=== PATIENT | female | born 1995 | race African-American/Black ===

== ENCOUNTER 2021-09-04 14:50 | Observation (INO) ==
--- NOTE | 2021-09-04 15:46 | Emergency Department Note ---
History of Present Illness General Chief complaint: Referred by Doctor Stated complaint: HEMOGLOBIN IS 4, TOLD TO COME BACK Time Seen by Provider: 09/04/21 15:27 History of Present Illness 26-year-old female who presents to the emergency department with a male friend for evaluation of anemia. The patient reports a prior history of iron deficiency anemia. She follows with Dr. Arnold, a rn review in [place]. She had lab work performed on Tuesday, and was called early Tuesday morning and advised that her hemoglobin was 4.3. The patient is visiting her friend from [place]. The patient reports feeling weak, dizzy, having chest pain and shortness of breath. She denies any back pain, nausea or headache. The patient has needed a blood transfusion approximately 2.5 years ago. She reports that s he has heavy menstruations do not help. She is due for her menstruation next week. Patient currently denies . The patient currently denies any discomfort. Home Medications Medication Instructions Recorded Confirmed Type No Known Home Medications 09/04/21 09/04/21 History Allergies Allergy/AdvReac Type Severity Reaction Status Date / Time acetaminophen Allergy Severe hallucinati Verified 09/04/21 17:49 ons Past Med/Surg History Medical History (Updated 09/04/21 @ 19:15 by Meagan Medina PA-C) Asthma History of blood transfusion Iron deficiency anemia Surgical History (Updated 09/04/21 @ 19:15 by Meagan Medina PA-C) History of appendectomy Family History (Updated 09/04/21 @ 19:13 by Meagan Medina PA-C) Mother Anemia LUCI in relation to fibroid uterus Denies family history of Blood disorder Social History (Updated 09/04/21 @ 19:14 by Meagan Medina PA-C) Smoking Status: Never smoker Hx Alcohol Use: Yes Alcohol type: wine Alcohol Intake Frequency: Monthly or Less Hx Substance Use: No Preferred Language: Slovak marital status: Single current occupational status: employed Feels Safe at Home: Yes Review of Systems 10 system review was performed and was negative except for pertinent positives and negatives as indicated in history of present illness Physical Exam Vital Signs Vital Signs - 24 hr 09/04/21 14:53 09/04/21 15:55 09/04/21 17:00 Temperature 36.6 C Temperature Source Temporal Artery Scan Pulse Rate 74 Pulse Rate [Apical] 77 70 Pulse Rhythm [Apical] Regular Respiratory Rate 16 16 16 Respiratory Effort / Characteristics Non-Labored Non-Labored Respiratory Depth Normal Normal Blood Pressure 121/77 Blood Pressure [Left Arm] 100/62 Blood Pressure Mean 91 Blood Pressure Mean [Left Arm] 74 Pulse Oximetry 100 99 98 Oxygen Delivery Method Room Air Room Air Room Air Sepsis Recent Fever Within 48 Hours No Sepsis New/Unexplained Change in Mental Status No Sepsis Action Taken by Nursing No Action Required 09/04/21 18:33 09/04/21 19:00 Temperature Temperature Source Pulse Rate 76 Pulse Rate [Apical] 78 Pulse Rhythm [Apical] Regular Respiratory Rate 16 18 Respiratory Effort / Characteristics Non-Labored Respiratory Depth Normal Blood Pressure 118/58 L Blood Pressure [Left Arm] 114/66 Blood Pressure Mean 78 Blood Pressure Mean [Left Arm] 82 Pulse Oximetry 99 98 Oxygen Delivery Method Room Air Room Air Sepsis Recent Fever Within 48 Hours Sepsis New/Unexplained Change in Mental Status Sepsis Action Taken by Nursing CONSTITUTIONAL: Healthy and well nourished. Alert and oriented X 3. Does not appear in any acute distress. HEENT: Normocephalic, atraumatic. Pupils equal, round and reactive. Patient has conjunctival pallor. Mucous membranes are dry. NECK: Full active range of motion without discomfort. No JVD or carotid bruits. LYMPHATICS: No cervical chain adenopathy. RESPIRATORY: Clear to auscultation bilaterally with no wheezing, crackles, rhonchi or stridor. CARDIOVASCULAR: Regular rate and rhythm with no murmurs, rubs or gallops. GASTROINTESTINAL: Bowel sounds present in all quadrants. Abdomen is soft and nontender to palpation. MUSCULOSKELETAL: Full range of motion of all major joints without discomfort. INTEGUMENTARY: No rash or other significant dermatologic conditions noted. HEMATOLOGIC: No ecchymosis or petechiae. PSYCHIATRIC: Positive affect. NEUROLOGIC: Cranial nerves II-XII grossly intact. No focal neurologic deficits noted. Course Course Patient history and physical exam were performed. Nurses notes were reviewed. Vital signs were reviewed and were normal from triage. She has not had any visits to our facility in the past. IV access was established, and labs were drawn. The patient was hydrated with a liter normal saline. An ECG was performed shows a normal sinus rhythm. The patient was placed on cardiac exercise specialist while in the emergency department. Review of labs shows a hemoglobin and hematocrit of 4.9 and 18.2, respectively. The patient is also pancytopenic with a white count of 3.77, and platelet count of 108,000. Patient is mildly hyponatremic, which should be corrected with the IV normal saline. Creatinine is normal. Additional labs for anemia assessment were also ordered. TSH is normal. Urinalysis shows no hematuria or signs of infection. Findings were discussed with the patient. The patient was advised that she should receive blood transfusions, and I did recommend hospitalist management. The patient was in agreement with admission. I did order a COVID-19 test, however the patient initially refused. When I went back to talk with the patient. She reported "I do not want any chemicals put in my body". I explained that this is only a dry nasal swab. The patient did sign an informed consent for blood transfusions. I also recommended a stool Hemoccult test, either with a stool sample or digital rectal exam. The patient reports that she would try to provide a stool sample, and refused a digital rectal exam. The case was further discussed with the [facility] service, who came to the emergency department for further reevaluation and management. Please see their dictation for further treatment and final disposition. Medical Decision Making Medical Records Attestation: I reviewed the patient's medical records. Home Medications Current Medication List: was personally reviewed by me Laboratory Data Attestation: I reviewed the patient's lab results. Result diagrams: 09/04/21 15:57 09/04/21 15:57 Lab Results 09/04/21 09/04/21 09/04/21 Range/Units 15:57 15:57 15:57 WBC 3.77 L (4.8-10.8) K/uL RBC 2.47 L (4.2-5.4) M/uL Hgb 4.9 L* (12.0-16.0) g/dL Hct 18.2 L* (37-47) % MCV 73.7 L (80-100) fL MCH 19.8 L (25-34) pg MCHC 26.9 L (32-36) g/dL RDW Std Deviation 64.4 H (36.4-46.3) fL RDW Coeff of Hyacinth 24.3 H (11.5-14.5) % Plt Count 108 L (130-400) K/uL MPV 10.3 (7.4-10.4) fL Immature Gran % (Auto) 0.0 % Neut % (Auto) 63.9 % Lymph % (Auto) 23.1 % [place] % (Auto) 9.5 % Eos % (Auto) 3.2 % Baso % (Auto) 0.3 % Neut # (Auto) 2.41 (1.4-6.5) K/uL Lymph # (Auto) 0.87 L (1.2-3.4) K/uL [place] # (Auto) 0.36 (0.11-0.59) K/uL Eos # (Auto) 0.12 (0-0.5) K/uL Baso # (Auto) 0.01 (0-0.2) K/uL Immature Gran # (Auto) 0.00 (0.00-0.02) K/uL Platelet Estimate Decreased L (Normal) Giant Platelets 1+ Hypochromasia Present Anisocytosis Present Target Cells 1+ Tear Drop Cells 1+ PT 12.0 (9.0-12.0) Seconds INR 1.1 (0.9-1.1) Sodium (136-145) mmol/L Potassium (3.5-5.1) mmol/L Chloride (98-107) mmol/L Carbon Dioxide (21-32) mmol/L Anion Gap (3-11) BUN (6-23) mg/dl Creatinine (0.6-1.2) mg/dl Est Cr Clr Drug Dosing ml/min Est GFR ( Amer) ml/min Est GFR (Non-Af Amer) ml/min BUN/Creatinine Ratio (10-20) Glucose (70-99(Fasting)) mg/dl Calcium (8.5-10.1) mg/dl Phosphorus (2.5-4.9) mg/dl Magnesium (1.7-2.4) mg/dl Iron (35-150) mcg/dl Transferrin (200-360) mg/dl Ferritin (8-388) ng/ml Total Bilirubin (0.2-1.0) mg/dl Direct Bilirubin AST (13-39) U/L ALT (7-52) U/L Alkaline Phosphatase (34-104) U/L Troponin I High Sens (0-14) pg/ml Total Protein (6.0-8.3) gm/dl Albumin (3.4-5.0) gm/dl Globulin (2.5-4.0) gm/dl Albumin/Globulin Ratio (0.9-2) Vitamin B12 353 (180-914) pg/ml Folate 9.99 (>5.38) ng/ml TSH (0.300-4.500) uIu/ml Urine Color Urine Appearance (Clear) Urine pH (4.5-7.5) Ur Specific [place] (1.000-1.030) Urine Protein (Negative) Urine Glucose (UA) (Negative) Urine Ketones (Negative) Urine Blood (Negative) Urine Nitrite (Negative) Urine Bilirubin (Negative) Urine Urobilinogen (Negative) Ur Leukocyte Esterase (Negative) POC Ur Test (NEG) SARS-CoV-2, RNA, NAAT (NEGATIVE) Blood Type Blood Type Recheck Antibody Screen Crossmatch 09/04/21 09/04/21 09/04/21 Range/Units 15:57 15:57 15:57 WBC (4.8-10.8) K/uL RBC (4.2-5.4) M/uL Hgb (12.0-16.0) g/dL Hct (37-47) % MCV (80-100) fL MCH (25-34) pg MCHC (32-36) g/dL RDW Std Deviation (36.4-46.3) fL RDW Coeff of Hyacinth (11.5-14.5) % Plt Count (130-400) K/uL MPV (7.4-10.4) fL Immature Gran % (Auto) % Neut % (Auto) % Lymph % (Auto) % [place] % (Auto) % Eos % (Auto) % Baso % (Auto) % Neut # (Auto) (1.4-6.5) K/uL Lymph # (Auto) (1.2-3.4) K/uL [place] # (Auto) (0.11-0.59) K/uL Eos # (Auto) (0-0.5) K/uL Baso # (Auto) (0-0.2) K/uL Immature Gran # (Auto) (0.00-0.02) K/uL Platelet Estimate (Normal) Giant Platelets Hypochromasia Anisocytosis Target Cells Tear Drop Cells PT (9.0-12.0) Seconds INR (0.9-1.1) Sodium 135 L (136-145) mmol/L Potassium 3.5 (3.5-5.1) mmol/L Chloride 105 (98-107) mmol/L Carbon Dioxide 22 (21-32) mmol/L Anion Gap 8 (3-11) BUN 7 (6-23) mg/dl Creatinine 0.57 L (0.6-1.2) mg/dl Est Cr Clr Drug Dosing 164.3 ml/min Est GFR ( Amer) 147.2 ml/min Est GFR (Non-Af Amer) 127.0 ml/min BUN/Creatinine Ratio 12.3 (10-20) Glucose 82 (70-99(Fasting)) mg/dl Calcium 9.4 (8.5-10.1) mg/dl Phosphorus 3.8 (2.5-4.9) mg/dl Magnesium 2.1 (1.7-2.4) mg/dl Iron 19 L (35-150) mcg/dl Transferrin 395 H (200-360) mg/dl Ferritin 1.8 L (8-388) ng/ml Total Bilirubin 2.4 H (0.2-1.0) mg/dl Direct Bilirubin AST 10 L (13-39) U/L ALT 5 L (7-52) U/L Alkaline Phosphatase 53 (34-104) U/L Troponin I High Sens 2.6 (0-14) pg/ml Total Protein 7.4 (6.0-8.3) gm/dl Albumin 4.5 (3.4-5.0) gm/dl Globulin 2.9 (2.5-4.0) gm/dl Albumin/Globulin Ratio 1.6 (0.9-2) Vitamin B12 Cancelled (180-914) pg/ml Folate (>5.38) ng/ml TSH 1.088 (0.300-4.500) uIu/ml Urine Color Urine Appearance (Clear) Urine pH (4.5-7.5) Ur Specific [place] (1.000-1.030) Urine Protein (Negative) Urine Glucose (UA) (Negative) Urine Ketones (Negative) Urine Blood (Negative) Urine Nitrite (Negative) Urine Bilirubin (Negative) Urine Urobilinogen (Negative) Ur Leukocyte Esterase (Negative) POC Ur Test (NEG) SARS-CoV-2, RNA, NAAT (NEGATIVE) Blood Type Blood Type Recheck Antibody Screen Crossmatch 09/04/21 09/04/21 09/04/21 Range/Units 16:45 16:45 17:08 WBC (4.8-10.8) K/uL RBC (4.2-5.4) M/uL Hgb (12.0-16.0) g/dL Hct (37-47) % MCV (80-100) fL MCH (25-34) pg MCHC (32-36) g/dL RDW Std Deviation (36.4-46.3) fL RDW Coeff of Hyacinth (11.5-14.5) % Plt Count (130-400) K/uL MPV (7.4-10.4) fL Immature Gran % (Auto) % Neut % (Auto) % Lymph % (Auto) % [place] % (Auto) % Eos % (Auto) % Baso % (Auto) % Neut # (Auto) (1.4-6.5) K/uL Lymph # (Auto) (1.2-3.4) K/uL [place] # (Auto) (0.11-0.59) K/uL Eos # (Auto) (0-0.5) K/uL Baso # (Auto) (0-0.2) K/uL Immature Gran # (Auto) (0.00-0.02) K/uL Platelet Estimate (Normal) Giant Platelets Hypochromasia Anisocytosis Target Cells Tear Drop Cells PT (9.0-12.0) Seconds INR (0.9-1.1) Sodium (136-145) mmol/L Potassium (3.5-5.1) mmol/L Chloride (98-107) mmol/L Carbon Dioxide (21-32) mmol/L Anion Gap (3-11) BUN (6-23) mg/dl Creatinine (0.6-1.2) mg/dl Est Cr Clr Drug Dosing ml/min Est GFR ( Amer) ml/min Est GFR (Non-Af Amer) ml/min BUN/Creatinine Ratio (10-20) Glucose (70-99(Fasting)) mg/dl Calcium (8.5-10.1) mg/dl Phosphorus (2.5-4.9) mg/dl Magnesium (1.7-2.4) mg/dl Iron (35-150) mcg/dl Transferrin (200-360) mg/dl Ferritin (8-388) ng/ml Total Bilirubin (0.2-1.0) mg/dl Direct Bilirubin AST (13-39) U/L ALT (7-52) U/L Alkaline Phosphatase (34-104) U/L Troponin I High Sens (0-14) pg/ml Total Protein (6.0-8.3) gm/dl Albumin (3.4-5.0) gm/dl Globulin (2.5-4.0) gm/dl Albumin/Globulin Ratio (0.9-2) Vitamin B12 (180-914) pg/ml Folate (>5.38) ng/ml TSH (0.300-4.500) uIu/ml Urine Color Yellow Urine Appearance Clear (Clear) Urine pH 6.0 (4.5-7.5) Ur Specific [place] 1.005 (1.000-1.030) Urine Protein Negative (Negative) Urine Glucose (UA) Negative (Negative) Urine Ketones Trace H (Negative) Urine Blood Negative (Negative) Urine Nitrite Negative (Negative) Urine Bilirubin Negative (Negative) Urine Urobilinogen Negative (Negative) Ur Leukocyte Esterase Negative (Negative) POC Ur Test NEG (NEG) SARS-CoV-2, RNA, NAAT (NEGATIVE) Blood Type O Positive Blood Type Recheck Antibody Screen NEGATIVE Crossmatch See Detail 09/04/21 09/04/21 09/04/21 Range/Units 17:33 19:16 19:16 WBC (4.8-10.8) K/uL RBC (4.2-5.4) M/uL Hgb (12.0-16.0) g/dL Hct (37-47) % MCV (80-100) fL MCH (25-34) pg MCHC (32-36) g/dL RDW Std Deviation (36.4-46.3) fL RDW Coeff of Hyacinth (11.5-14.5) % Plt Count (130-400) K/uL MPV (7.4-10.4) fL Immature Gran % (Auto) % Neut % (Auto) % Lymph % (Auto) % [place] % (Auto) % Eos % (Auto) % Baso % (Auto) % Neut # (Auto) (1.4-6.5) K/uL Lymph # (Auto) (1.2-3.4) K/uL [place] # (Auto) (0.11-0.59) K/uL Eos # (Auto) (0-0.5) K/uL Baso # (Auto) (0-0.2) K/uL Immature Gran # (Auto) (0.00-0.02) K/uL Platelet Estimate (Normal) Giant Platelets Hypochromasia Anisocytosis Target Cells Tear Drop Cells PT (9.0-12.0) Seconds INR (0.9-1.1) Sodium (136-145) mmol/L Potassium (3.5-5.1) mmol/L Chloride (98-107) mmol/L Carbon Dioxide (21-32) mmol/L Anion Gap (3-11) BUN (6-23) mg/dl Creatinine (0.6-1.2) mg/dl Est Cr Clr Drug Dosing ml/min Est GFR ( Amer) ml/min Est GFR (Non-Af Amer) ml/min BUN/Creatinine Ratio (10-20) Glucose (70-99(Fasting)) mg/dl Calcium (8.5-10.1) mg/dl Phosphorus (2.5-4.9) mg/dl Magnesium (1.7-2.4) mg/dl Iron (35-150) mcg/dl Transferrin (200-360) mg/dl Ferritin (8-388) ng/ml Total Bilirubin (0.2-1.0) mg/dl Direct Bilirubin Cancelled AST (13-39) U/L ALT (7-52) U/L Alkaline Phosphatase (34-104) U/L Troponin I High Sens (0-14) pg/ml Total Protein (6.0-8.3) gm/dl Albumin (3.4-5.0) gm/dl Globulin (2.5-4.0) gm/dl Albumin/Globulin Ratio (0.9-2) Vitamin B12 (180-914) pg/ml Folate (>5.38) ng/ml TSH (0.300-4.500) uIu/ml Urine Color Urine Appearance (Clear) Urine pH (4.5-7.5) Ur Specific [place] (1.000-1.030) Urine Protein (Negative) Urine Glucose (UA) (Negative) Urine Ketones (Negative) Urine Blood (Negative) Urine Nitrite (Negative) Urine Bilirubin (Negative) Urine Urobilinogen (Negative) Ur Leukocyte Esterase (Negative) POC Ur Test (NEG) SARS-CoV-2, RNA, NAAT NEGATIVE (NEGATIVE) Blood Type Blood Type Recheck O Positive Antibody Screen Crossmatch 09/04/21 Range/Units 19:16 WBC (4.8-10.8) K/uL RBC (4.2-5.4) M/uL Hgb (12.0-16.0) g/dL Hct (37-47) % MCV (80-100) fL MCH (25-34) pg MCHC (32-36) g/dL RDW Std Deviation (36.4-46.3) fL RDW Coeff of Hyacinth (11.5-14.5) % Plt Count (130-400) K/uL MPV (7.4-10.4) fL Immature Gran % (Auto) % Neut % (Auto) % Lymph % (Auto) % [place] % (Auto) % Eos % (Auto) % Baso % (Auto) % Neut # (Auto) (1.4-6.5) K/uL Lymph # (Auto) (1.2-3.4) K/uL [place] # (Auto) (0.11-0.59) K/uL Eos # (Auto) (0-0.5) K/uL Baso # (Auto) (0-0.2) K/uL Immature Gran # (Auto) (0.00-0.02) K/uL Platelet Estimate (Normal) Giant Platelets Hypochromasia Anisocytosis Target Cells Tear Drop Cells PT (9.0-12.0) Seconds INR (0.9-1.1) Sodium (136-145) mmol/L Potassium (3.5-5.1) mmol/L Chloride (98-107) mmol/L Carbon Dioxide (21-32) mmol/L Anion Gap (3-11) BUN (6-23) mg/dl Creatinine (0.6-1.2) mg/dl Est Cr Clr Drug Dosing ml/min Est GFR ( Amer) ml/min Est GFR (Non-Af Amer) ml/min BUN/Creatinine Ratio (10-20) Glucose (70-99(Fasting)) mg/dl Calcium (8.5-10.1) mg/dl Phosphorus (2.5-4.9) mg/dl Magnesium (1.7-2.4) mg/dl Iron (35-150) mcg/dl Transferrin (200-360) mg/dl Ferritin (8-388) ng/ml Total Bilirubin (0.2-1.0) mg/dl Direct Bilirubin 0.4 H AST (13-39) U/L ALT (7-52) U/L Alkaline Phosphatase (34-104) U/L Troponin I High Sens 3.2 (0-14) pg/ml Total Protein (6.0-8.3) gm/dl Albumin (3.4-5.0) gm/dl Globulin (2.5-4.0) gm/dl Albumin/Globulin Ratio (0.9-2) Vitamin B12 (180-914) pg/ml Folate (>5.38) ng/ml TSH (0.300-4.500) uIu/ml Urine Color Urine Appearance (Clear) Urine pH (4.5-7.5) Ur Specific [place] (1.000-1.030) Urine Protein (Negative) Urine Glucose (UA) (Negative) Urine Ketones (Negative) Urine Blood (Negative) Urine Nitrite (Negative) Urine Bilirubin (Negative) Urine Urobilinogen (Negative) Ur Leukocyte Esterase (Negative) POC Ur Test (NEG) SARS-CoV-2, RNA, NAAT (NEGATIVE) Blood Type Blood Type Recheck Antibody Screen Crossmatch Imaging Data Attestation: I personally reviewed and interpreted this imaging study as follows: My Impression: My interpretation of the portable chest x-ray does not show Ayaka Costlow, PA-C effusions, consolidations or pneumothorax. Cardiac prominence is noted. Radiologist report was also reviewed. Radiologist's Impression: Chest X-Ray 09/04/21 15:39 XR chest 1V portable CLINICAL HISTORY: weakness COMPARISON STUDY: No previous studies for comparison. FINDINGS: Lung volumes are normal. Lungs are clear. There is no pneumothorax or pleural effusion. There is mild to moderate enlargement of the cardiac silhouette. Mediastinal contours are normal. There is no evidence for pulmonary edema. IMPRESSION: No acute cardiopulmonary findings. Mild to moderate enlargement of the cardiac silhouette. ACT 112: Negative or not required by law. Electronically signed by: Cal Rincon M.D. 09/04/2021 4:11 PM ECG Data Attestation: I personally reviewed and interpreted this ECG as follows: Indication: + chest pain and + weakness Rate (beats per minute): 72 Rhythm: + normal sinus ECG Intervals/blocks: + Normal QRS, + Normal QT and + Normal SC ECG [place]: + Normal ECG ST segments: + Normal ST segments Comparison ECG Date: no prior available Blood Pressure Blood Pressure Findings: Normal blood pressure MDM Narrative Cardiac monitoring: An order was placed for continuous cardiac monitoring. The monitor shows a rate of 72 bpm with a normal sinus rhythm. court recording monitor history was reviewed throughout the evaluation, and no dysrhythmias were noted. Patient presents to the emergency department with report of a hemoglobin of 4.2 on outpatient labs. Labs were done again today, confirming a hemoglobin of 4.9 and pancytopenia. Because the patient will likely require more than 2 units of blood, I do feel that hospitalist management is warranted. The patient has refused a digital rectal examination, however she denies any rectal bleeding or dark stools to suggest GI bleed. ECG and troponin were normal, as was creatinine. At this point, I do not suspect end-organ damage. Impression & Plan Severe anemia, History of iron deficiency anemia, Chest pain, Shortness of breath, Weakness Discharge Plan Visit Data Chief Complaint: Referred by Doctor Stated Complaint: HEMOGLOBIN IS 4, TOLD TO COME BACK ED Provider: Rayo Santana ED Midlevel Provider: Bharat High Discharge Problem: Severe anemia, History of iron deficiency anemia, Chest pain, Shortness of breath, Weakness Forms Stand Alone Forms: [employer] Prescriptions Prescriptions: No Action No Known Home Medications RF: 0 Referrals Referrals: PCP,NO [Primary Care Provider] - Discharge Problem: Chest pain Qualifiers: Chest pain type: other chest pain Qualified Code(s): R07.89 - Other chest pain
--- NOTE | 2021-09-04 16:13 | XRay Report ---
XR chest 1V portable CLINICAL HISTORY: weakness COMPARISON STUDY: No previous studies for comparison. FINDINGS: Lung volumes are normal. Lungs are clear. There is no pneumothorax or pleural effusion. The re is mild to moderate enlargement of the cardiac silhouette. Mediastinal contours are normal. There is no evidence for pulmonary edema. IMPRESSION: No acute cardiopulmonary findings. Mild to moderate enlargement of the cardiac silhouett yang. ACT 112: Negative or not required by law. Electronically signed by: Cal Rincon M.D. 09/04/2021 4:11 PM
[2021-09-04 16:28] LABS: Mean Corpuscular Hgb Conc 26.9 g/dL (32-36)
[2021-09-04 16:30] LABS: INR 1.1 (0.9-1.1)
[2021-09-04] MEDS ORDERED: SODIUM CHLORIDE 0.9% 250 ML IV PRN (16:30)
[2021-09-04 16:35] LABS: Mean Platelet Volume 10.3 fL (7.4-10.4); Platelet Count 108 K/uL (130-400)
[2021-09-04 16:36] LABS: Anisocytosis Present; Basophils # (auto) 0.01 K/uL (0-0.2); Basophils % (auto) 0.3 %; Eosinophils # (auto) 0.12 K/uL (0-0.5); Eosinophils % (auto) 3.2 %; Giant Platelets 1+; Hematocrit (blood only) 18.2 % (37-47); Hemoglobin 4.9 g/dL (12.0-16.0); Hypochromasia Present; Lymphocytes # (auto) 0.87 K/uL (1.2-3.4); Lymphocytes % (auto) 23.1 %; Mean Corpuscular Hemoglobin 19.8 pg (25-34); Mean Corpuscular Volume 73.7 fL (80-100); Monocytes # (auto) 0.36 K/uL (0.11-0.59); Monocytes % (auto) 9.5 %; Neutrophils # (auto) 2.41 K/uL (1.4-6.5); Neutrophils % (auto) 63.9 %; Platelet Estimate Decreased (Normal); RDW Coefficient of Variation 24.3 % (11.5-14.5); RDW Standard Deviation 64.4 fL (36.4-46.3); Red Blood Count 2.47 M/uL (4.2-5.4); Target Cells 1+; Tear Drop Cells 1+; White Blood Count 3.77 K/uL (4.8-10.8)
[2021-09-04 16:53] LABS: Troponin I High Sensitivity 2.6 pg/ml (0-14)
[2021-09-04 16:55] LABS: Albumin Level 4.5 gm/dl (3.4-5.0); BUN Creatinine Ratio 12.3 (10-20); Bilirubin,Total 2.4 mg/dl (0.2-1.0); Calcium 9.4 mg/dl (8.5-10.1); Creatinine Clr Calc Pharmacy 164.3 ml/min; Est GFR (African American) 147.2 ml/min; Magnesium 2.1 mg/dl (1.7-2.4); Phosphorus 3.8 mg/dl (2.5-4.9); Potassium 3.5 mmol/L (3.5-5.1); Total Protein 7.4 gm/dl (6.0-8.3)
[2021-09-04 17:07] LABS: Ferritin 1.8 ng/ml (8-388)
[2021-09-04 17:14] LABS: Appearance Urine Clear (Clear); Bilirubin Urine Negative (Negative); Blood Urine Negative (Negative); Color Urine Yellow; Glucose Urine UA Negative (Negative); Ketones Urine Trace (Negative); Leukocyte Esterase Urine Negative (Negative); Nitrite Urine Negative (Negative); Protein Urine Negative (Negative); Specific Gravity Urine 1.005 (1.000-1.030); Urobilinogen Urine Negative (Negative)
[2021-09-04 17:20] LABS: Albumin Globulin Ratio 1.6 (0.9-2); Globulin 2.9 gm/dl (2.5-4.0)
[2021-09-04 17:21] LABS: Folate (Folic Acid) 9.99 ng/ml (>5.38)
--- NOTE | 2021-09-04 19:19 | History & Physical Report ---
Date of Service September 04, 2021 Assessment & Plan (1) Symptomatic anemia: (2) Iron deficiency anemia: (3) Pancytopenia: (4) Chest pain: Plan: Symptomatic anemia Iron deficiency as result of chronic blood loss Pancytopenia Admit to telemetry 2 units of PRBC ordered, will give 20 mg IV Lasix in between Repeat hemoglobin after transfusion and assess need for further blood products Severe iron deficiency, ferritin level 1.8 Initiate IV Venofer 300 mg IV in a.m. place on oral iron +vit C bid Will recommend discharging on oral iron, patient noncompliant in the past Patient will need close follow-up with [facility] hematology Dr. Carlton Arnold, record request order placed obtain peripheral smear given relative pancytopenia Pt admits to heavy menses, recommend f/u with SOAP TENDER, previously tried OCPs w/o improvement dietary intake could also be factor, consult car conditioner consider screening for celiac disease as well - currently pt w/o GI sx Chest pain Sob likely as result of severe anemia cxr, trop, ecg ok will cycle trop and repeat ecg in am. for completeness DVT ppx: none given age and anemia FULL CODE PCP: None, from [place] - recommend establishing with PCP Dispo: tele for transfusion Pt was seen and examined in collaboration with Dr. Hatch, please see addendum History of Present Illness Chief Complaint: Referred by carbon printer due to low hemoglobin. Primary Care Provider: NO PCP This is a 26-year-old -Faro[place] female who presents to ER with significant past medical history of iron deficiency anemia and asthma secondary to being referred by her carbon printer due to low hemoglobin. Patient is from out of the area area, [facility]. She follows with [facility] hematology Dr. Carlton Arnold. Just recently established with him in May. She admits to history of iron deficiency anemia ever since she first developed her menses at 10 years old. Her first blood transfusion occurred at the age of 13. Her last transfusion was approximately 2 years ago. She states the highest her hemoglobin maybe ever has been is 9. Over the last 2 to 3 months she has noticed increasing lightheadedness and dizziness upon standing, shortness of breath and chest pain with exertion and generally feeling unwell. She recently had a telemedicine visit with her carbon printer and had lab work done. Her hemoglobin was in the fours and she was recommended to come to ED. She was initially called by her carbon printer 3 days ago.In regards to her heavy menstrual cycle she states it typically last 5 to 7 days, she will go through at least 1 box of pads or tampons. She previously had a pelvic ultrasound but was within normal limits. She was also on control for approximately 10 years with no change in her heavy menses. Her mother also has issues with iron deficiency anemia in relation to heavy menstrual bleeding and fibroids. She states hers is much worse than her mother's. She denies any further work-up regarding iron deficiency anemia including EGD or colonoscopy. She denies any further family history of blood disorder. She denies any recent illness, fever, chills, sweats, syncope, URI symptoms, cough, hemoptysis, epistaxis, hematemesis, nausea, vomiting, abdominal pain, melena, hematochezia, hematuria, dysuria, increased urgency or frequency with urination. Her appetite is otherwise decreased and she does not feel that she gets adequate iron in her diet. She does not like red meat. She has a friend Eric at bedside. She denies any tobacco or illicit drug use. She does occasionally drink wine. In ED patient made hemodynamically stable. Her hemoglobin was 4.9 and 18.2. She also had a relative pancytopenia. Her CMP was generally unremarkable. She did have elevated total bilirubin at 2.4. Her LFTs were otherwise normal. Her iron panel revealed a significant iron deficiency anemia with a ferritin level of 1.8, iron 19, transferrin 395. She was typed and crossed for 2 units in ED. Her urine test was negative, COVID test was negative and urine was negative. Allergies Allergy/AdvReac Type Severity Reaction Status Date / Time acetaminophen Allergy Severe hallucinati Verified 09/04/21 17:49 ons Home Medications Medication Instructions Recorded Confirmed Type No Known Home Medications 09/04/21 09/04/21 History Past Med/Surg History Medical History (Updated 09/04/21 @ 19:15 by Meagan Medina PA-C) Asthma History of blood transfusion Iron deficiency anemia Surgical History (Updated 09/04/21 @ 19:15 by Meagan Medina PA-C) History of appendectomy Family History (Updated 09/04/21 @ 19:13 by Meagan Medina PA-C) Mother Anemia LUCI in relation to fibroid uterus Denies family history of Blood disorder Social History (Updated 09/04/21 @ 19:14 by Meagan Medina PA-C) Smoking Status: Never smoker Hx Alcohol Use: Yes Alcohol type: wine Alcohol Intake Frequency: Monthly or Less Hx Substance Use: No Preferred Language: Albanian marital status: Single current occupational status: employed Feels Safe at Home: Yes Review of Systems Review of Systems: All systems reviewed & are unremarkable except as noted in HPI & below Physical Exam Physical Exam: Constitutional: WD/WN, vitals as above, NAD, sitting up in bed, pleasant, conversing easily Head: Normocephalic, Atraumatic Eyes: PERRL, conjunctivae normal, anicteric sclerae ENMT: external ear and nose normal, oropharynx normal Neck: trachea midline, no thyromegaly normal visual inspection Respiratory: normal respiratory effort, lungs clear to auscultation, no wheeze, rales, rhonchi. Normal insp/exp effort, no accessory muscle use Cardiovascular: RRR, no murmur, no edema Vessels: no JVD or carotid bruit Chest: normal inspection of chest Abdomen: normal bowel sounds, soft, nontender, no hepatosplenomegaly Musculoskeletal: no cyanosis or clubbing, extremities motor strength 5/5 Skin: no rashes, warm and dry normal turgor Neurologic: PERRL, EOMI, accommodation nl, no face palsy, no dysarthria CN's II-XI intact bilaterally and moves all extremities Psychiatric: A+Ox3, euthymic affect Lymphatic: no cervical or axillary lymphadenopathy : deferred Results & Data Results & Data ([facility]) Vital Signs (Past 12 Hours) Vital Signs Temp Pulse Pulse Resp BP BP Pulse Ox 09/04/21 19:00 76 18 118/58 L 98 09/04/21 18:33 78 16 114/66 99 09/04/21 17:00 70 16 98 09/04/21 15:55 77 16 100/62 99 09/04/21 14:53 36.6 C 74 16 121/77 100 Diagnostic Findings Chest X-Ray 09/04/21 15:39 XR chest 1V portable CLINICAL HISTORY: weakness COMPARISON STUDY: No previous studies for comparison. FINDINGS: Lung volumes are normal. Lungs are clear. There is no pneumothorax or pleural effusion. There is mild to moderate enlargement of the cardiac silhouette. Mediastinal contours are normal. There is no evidence for pulmonary edema. IMPRESSION: No acute cardiopulmonary findings. Mild to moderate enlargement of the cardiac silhouette. ACT 112: Negative or not required by law. Electronically signed by: Cal Rincon M.D. 09/04/2021 4:11 PM ECG Rate (beats per minute): 72 Rhythm: normal sinus COVID-19 Results Results COVID-19 Adm Lab Results: RBC 2.47 M/uL (4.2-5.4) L 09/04/21 WBC 3.77 K/uL (4.8-10.8) L 09/04/21 Hgb 4.9 g/dL (12.0-16.0) L* 09/04/21 Hct 18.2 % (37-47) L* 09/04/21 Plt Count 108 K/uL (130-400) L 09/04/21 Neutrophils (%) (Auto) 63.9 % 09/04/21 Lymphocytes (%) (Auto) 23.1 % 09/04/21 Monocytes # (Auto) 0.36 K/uL (0.11-0.59) 09/04/21 Eosinophils # (Auto) 0.12 K/uL (0-0.5) 09/04/21 Immature Granulocyte % (Auto) 0.0 % 09/04/21 Neutrophils # (Auto) 2.41 K/uL (1.4-6.5) 09/04/21 Lymphocytes # (Auto) 0.87 K/uL (1.2-3.4) L 09/04/21 Monocytes # (Auto) 0.36 K/uL (0.11-0.59) 09/04/21 Eosinophils # (Auto) 0.12 K/uL (0-0.5) 09/04/21 Basophils # (Auto) 0.01 K/uL (0-0.2) 09/04/21 Immature Granulocyte # (Auto) 0.00 K/uL (0.00-0.02) 09/04/21 Giant Platelets 1+ 09/04/21 Hypochromasia Present 09/04/21 Anisocytosis Present 09/04/21 Target Cells 1+ 09/04/21 Tear Drop Cells 1+ 09/04/21 Na 135 mmol/L (136-145) L 09/04/21 K 3.5 mmol/L (3.5-5.1) 09/04/21 Cl 105 mmol/L (98-107) 09/04/21 CO2 22 mmol/L (21-32) 09/04/21 Anion Gap 8 (3-11) 09/04/21 BUN 7 mg/dl (6-23) 09/04/21 Creatinine 0.57 mg/dl (0.6-1.2) L 09/04/21 BUN/Creatinine Ratio 12.3 (10-20) 09/04/21 Glucose Level 82 mg/dl (70-99(Fasting)) 09/04/21 Ca 9.4 mg/dl (8.5-10.1) 09/04/21 Phosphorus Level 3.8 mg/dl (2.5-4.9) 09/04/21 Total Bilirubin 2.4 mg/dl (0.2-1.0) H 09/04/21 Direct Bilirubin 0.4 mg/dl (0-0.2) H 09/04/21 AST/SGOT 10 U/L (13-39) L 09/04/21 ALT/SGPT 5 U/L (7-52) L 09/04/21 Alkaline Phosphatase 53 U/L (34-104) 09/04/21 Total Protein 7.4 gm/dl (6.0-8.3) 09/04/21 Albumin 4.5 gm/dl (3.4-5.0) 09/04/21 Globulin 2.9 gm/dl (2.5-4.0) 09/04/21 Albumin/Globulin Ratio 1.6 (0.9-2) 09/04/21 Ferritin 1.8 ng/ml (8-388) L 09/04/21 INR 1.1 (0.9-1.1) 09/04/21 SARS-CoV-2, RNA, NAAT NEGATIVE (NEGATIVE) 09/04/21 Chest X-Ray 09/04/21 Code Status & VTE Plan Code Status FULL CODE VTE Prophylaxis Plan VTE Prophylaxis will be ordered: No Supervising Physician Co-Signing Physician Notes Patient is a 26-year-old female with history of asthma, iron deficiency anemia, menorrhagia and other medical problems presents with history of worsening dizziness, shortness of breath and chest pain with exertion since past 2 to 3 months. She tried OCPs for menorrhagia in the past without much help. Currently she is not on any medications for menorrhagia. She denies any hemoptysis, epistaxis, hematuria, melena or any other bleeding issues other than menorrhagia. Please review HPI for complete details of presentation. Blood work showed hemoglobin 4.9, hematocrit 18.2, WBC 3.7, platelet 108, INR 1.1, sodium 135, potassium 3.5, creatinine 0.57, BUN 7, iron 19, transferrin 395, ferritin 1.8, total bilirubin 2.4, AST 10, ALT 5, alkaline phosphatase 53 normal folate, vitamin B12, thyroid 1.0. Chest x-ray showed mild to moderate enlargement of cardiac silhouette. EKG showed no signs of acute ischemia. On exam patient is moderately built and nourished, no apparent distress, normocephalic atraumatic, EOMI, normal breath sounds, clear to auscultation, S1- S2, no murmur, no pedal edema, abdomen soft, nontender, normal bowel sounds, alert, awake, oriented, grossly no focal deficits. Patient is admitted for management of symptomatic anemia, pancytopenia and chest pain rule out ACS. Chest pain likely secondary to significant anemia. Agree with checking peripheral smear given pancytopenia. Will transfuse 2 units of PRBCs. Monitor volume status closely. Also start on IV iron. Trend cardiac enzymes, repeat EKG in the morning and check resting echo. Needs follow-up with [facility] as outpatient for management of menorrhagia. I personally reviewed the record. Patient is interviewed and examined at bedside. Patient's care is coordinated with Meagan Medina PA-C. Please refer to the documentation above for details of patient's presentation and for discussion of other issues. (1) Chest pain Chest pain type: other chest pain Qualified Code(s): R07.89 - Other chest pain
[2021-09-04] MEDS ORDERED: FUROSEMIDE INJ 20 MG/2 ML VIAL IV SCH (19:45)
[2021-09-04 20:04] LABS: Troponin I High Sensitivity 3.2 pg/ml (0-14)
[2021-09-04 20:06] LABS: Bilirubin Direct 0.4 mg/dl (0-0.2)
[2021-09-04] MEDS ORDERED: ONDANSETRON INJ 2 MG/ML 2 ML VIAL IV PRN (21:49)
[2021-09-04] MEDS ORDERED: ALUMINUM/MAGNESIUM SUSP 30 ML UDC PO PRN (21:49)
[2021-09-04] MEDS ORDERED: POLYETHYLENE (MIRALAX) 17 GM PACK PO PRN (21:49)
[2021-09-04] MEDS ORDERED: MAGNESIUM HYDROXIDE SUSP 30 ML UDC PO PRN (21:49)
[2021-09-05] MEDS ORDERED: SODIUM CHLORIDE 0.9% 500 ML IV ONE (02:24)
[2021-09-05 03:18] LABS: Albumin Globulin Ratio 1.6 (0.9-2); Albumin Level 4.2 gm/dl (3.4-5.0); BUN Creatinine Ratio 12.9 (10-20); Bilirubin,Total 4.3 mg/dl (0.2-1.0); Calcium 8.8 mg/dl (8.5-10.1); Creatinine Clr Calc Pharmacy 132.9 ml/min; Est GFR (African American) 137.6 ml/min; Est GFR (Non-African American) 118.7 ml/min; Globulin 2.7 gm/dl (2.5-4.0); Potassium 3.4 mmol/L (3.5-5.1); Total Protein 6.9 gm/dl (6.0-8.3); Troponin I High Sensitivity 2.7 pg/ml (0-14)
[2021-09-05 04:28] LABS: Hematocrit (blood only) 22.7 % (37-47); Hemoglobin 6.6 g/dL (12.0-16.0); Mean Corpuscular Hemoglobin 22.4 pg (25-34); Mean Corpuscular Hgb Conc 29.1 g/dL (32-36); Mean Corpuscular Volume 76.9 fL (80-100); Mean Platelet Volume 10.9 fL (7.4-10.4); Platelet Count 138 K/uL (130-400); RDW Coefficient of Variation 23.6 % (11.5-14.5); RDW Standard Deviation 66.7 fL (36.4-46.3); Red Blood Count 2.95 M/uL (4.2-5.4); White Blood Count 6.05 K/uL (4.8-10.8)
[2021-09-05] MEDS ORDERED: POTASSIUM CHLORIDE CRTAB 20 MEQ TABCR PO STA (04:33)
[2021-09-05] MEDS ORDERED: SODIUM CHLORIDE 0.9% 250 ML IV PRN (04:34)
[2021-09-05 04:43] LABS: Anisocytosis Present; Basophils # (auto) 0.02 K/uL (0-0.2); Basophils % (auto) 0.3 %; Eosinophils # (auto) 0.17 K/uL (0-0.5); Eosinophils % (auto) 2.8 %; Hypochromasia Present; Immature Granulocytes # (auto) 0.01 K/uL (0.00-0.02); Immature Granulocytes % (auto) 0.2 %; Lymphocytes # (auto) 1.47 K/uL (1.2-3.4); Lymphocytes % (auto) 24.3 %; Monocytes # (auto) 0.89 K/uL (0.11-0.59); Monocytes % (auto) 14.7 %; Neutrophils # (auto) 3.49 K/uL (1.4-6.5); Neutrophils % (auto) 57.7 %; Platelet Estimate Decreased (Normal)
[2021-09-05] MEDS ORDERED: FERROUS SULFATE 325 MG TAB PO SCH (08:00)
[2021-09-05] MEDS ORDERED: IRON SUCROSE 300 MG in SODIUM CHLORIDE 0.9% 250 ML IV ONE (08:00)
[2021-09-05] MEDS ORDERED: ASCORBIC ACID 500 MG TAB PO SCH (09:00)
[2021-09-05 11:35] LABS: Mean Corpuscular Hgb Conc 30.3 g/dL (32-36)
[2021-09-05 11:42] LABS: Hematocrit (blood only) 27.7 % (37-47); Hemoglobin 8.4 g/dL (12.0-16.0); Mean Corpuscular Hemoglobin 24.1 pg (25-34); Mean Corpuscular Volume 79.4 fL (80-100); RDW Coefficient of Variation 22.6 % (11.5-14.5); RDW Standard Deviation 65.7 fL (36.4-46.3); Red Blood Count 3.49 M/uL (4.2-5.4)
[2021-09-05 11:52] LABS: Anisocytosis Present; Basophils # (auto) 0.01 K/uL (0-0.2); Basophils % (auto) 0.2 %; Eosinophils # (auto) 0.13 K/uL (0-0.5); Eosinophils % (auto) 2.5 %; Hypochromasia Present; Immature Granulocytes # (auto) 0.01 K/uL (0.00-0.02); Immature Granulocytes % (auto) 0.2 %; Lymphocytes # (auto) 1.08 K/uL (1.2-3.4); Lymphocytes % (auto) 21.2 %; Monocytes # (auto) 0.61 K/uL (0.11-0.59); Neutrophils # (auto) 3.26 K/uL (1.4-6.5); Neutrophils % (auto) 63.9 %; Platelet Count 103 K/uL (130-400); Platelet Estimate Decreased (Normal); Polychromasia 1+
--- NOTE | 2021-09-05 13:31 | Hospitalist Progress Note ---
Date of Service September 05, 2021 Assessment & Plan (1) Symptomatic anemia: (2) Iron deficiency anemia: (3) Pancytopenia: (4) Chest pain: Plan: Symptomatic anemia Iron deficiency as result of chronic blood loss Pancytopenia 2 units of PRBC ordered, will give 20 mg IV Lasix in between Repeat hemoglobin after transfusion and assess need for further blood products Severe iron deficiency, ferritin level 1.8 Initiate IV Venofer 300 mg IV in a.m. place on oral iron +vit C bid Will recommend discharging on oral iron, patient noncompliant in the past Patient will need close follow-up with [facility] hematology Dr. Carlton Arnold, record request order placed Obtain peripheral smear given relative pancytopenia Pt admits to heavy menses, recommend f/u with HARNESS TIER, previously tried OCPs w/o improvement dietary intake could also be factor, consult fretted instrument maker hand consider screening for celiac disease as well - currently pt w/o GI sx Status post 2 unit of PRBC and hemoglobin went up to 8.4 Received intravenous Venofer Has been feeling much better and has been ambulating without any difficulties She wants to go home and will be discharged home this afternoon Strongly advised to continue with the iron pill and make appointment with certified orthotist/pedorthist and H[facility] as soon as possible as an outpatient Chest pain Sob likely as result of severe anemia cxr, trop, ecg ok will cycle trop and repeat ecg in am. for completeness Doubt any ACS and remains asymptomatic Bilirubin is high Mostly indirect Likely secondary to mild hemolysis LFTs are normal DVT ppx: none given age and anemia FULL CODE PCP: None, from [facility] - recommend establishing with PCP Dispo: tele for transfusion Should be discharged home this afternoon Admission and Anticipated Discharge Date Admission Date: September 04, 2021 Subjective 09/05/2021 The patient was seen and examined in medical telemetry unit She has history of chronic LUCI and was admitted with very low hemoglobin with symptoms She is a status post 3 units of PRBC and hemoglobin went up to 8.4 Has been feeling a lot better and has been ambulating in the hallway without any difficulties She wants to go home and she will be discharged home this afternoon Review of Systems Review of Systems: All systems reviewed and are unremarkable except as noted below Respiratory: No shortness of breath at rest or with ambulation Physical Exam Physical Exam: Lying in bed comfortably Constitutional: well developed, well nourished and + obese; not ill appearing Eyes: PERRL, conjunctivae normal, anicteric sclerae ENMT: external ear and nose normal, oropharynx normal Neck: trachea midline, no thyromegaly Respiratory: no respiratory distress Auscultation: lungs clear to auscultation bilaterally Cardiovascular: Rate/Rhythm: regular rate and regular rhythm; not tachycardic Heart Sounds: normal S1 and normal S2; no murmur Extremities: no edema Gastrointestinal (Abdomen): Inspection/Auscultation: normal bowel sounds; abdomen not distended Percussion/Palpation: abdomen soft; abdomen nontender Musculoskeletal: No acute arthritis in any joint Neurologic: Alert, awake and oriented x3. No focal sensory or no motor deficit appreciated Psychiatric: A+Ox3, euthymic affect Lymphatic: no cervical or axillary lymphadenopathy Results & Data Results & Data ([facility]) Vital Signs (Past 12 Hours) Vital Signs Temp Pulse Pulse Resp BP BP BP 09/05/21 11:51 37.0 C 93 H 18 117/79 09/05/21 09:19 36.5 C 62 18 113/72 09/05/21 08:03 66 09/05/21 07:33 36.7 C 60 18 110/68 09/05/21 06:33 36.7 C 65 16 117/70 09/05/21 06:03 36.4 C L 64 16 113/66 09/05/21 05:48 36.5 C 64 16 104/64 09/05/21 05:25 36.5 C 70 18 137/35 L 09/05/21 05:01 36.6 C 63 16 90/53 L 09/05/21 03:55 65 101/60 09/05/21 03:08 36.6 C 74 16 93/58 L 09/05/21 02:08 36.6 C 69 16 90/55 L Pulse Ox 09/05/21 11:51 93 09/05/21 09:19 09/05/21 08:03 09/05/21 07:33 99 09/05/21 06:33 100 09/05/21 06:03 100 09/05/21 05:48 100 09/05/21 05:25 100 09/05/21 05:01 100 09/05/21 03:55 09/05/21 03:08 100 09/05/21 02:08 100 Laboratory Results Short CBC 09/04/21 09/05/21 09/05/21 Range/Units 15:57 02:35 03:46 WBC 3.77 L Cancelled 6.05 (4.8-10.8) K/uL Hgb 4.9 L* Cancelled 6.6 L* (12.0-16.0) g/dL Hct 18.2 L* Cancelled 22.7 L (37-47) % Plt Count 108 L Cancelled 138 (130-400) K/uL 09/05/21 Range/Units 11:25 WBC 5.10 (4.8-10.8) K/uL Hgb 8.4 L (12.0-16.0) g/dL Hct 27.7 L (37-47) % Plt Count 103 L (130-400) K/uL BMP 09/04/21 09/05/21 15:57 02:35 Sodium 135 L 137 Potassium 3.5 3.4 L Chloride 105 104 Carbon Dioxide 22 26 BUN 7 9 Creatinine 0.57 L 0.70 Glucose 82 101 H Calcium 9.4 8.8 Liver Function 09/04/21 09/04/21 09/04/21 Range/Units 15:57 19:16 19:16 Total Bilirubin 2.4 H (0.2-1.0) mg/dl Direct Bilirubin Cancelled 0.4 H AST 10 L (13-39) U/L ALT 5 L (7-52) U/L Alkaline Phosphatase 53 (34-104) U/L Albumin 4.5 (3.4-5.0) gm/dl 09/05/21 Range/Units 02:35 Total Bilirubin 4.3 H D (0.2-1.0) mg/dl Direct Bilirubin AST 10 L (13-39) U/L ALT 5 L (7-52) U/L Alkaline Phosphatase 51 (34-104) U/L Albumin 4.2 (3.4-5.0) gm/dl Urine 09/04/21 Range/Units 16:45 Urine Color Yellow Urine Appearance Clear (Clear) Urine pH 6.0 (4.5-7.5) Ur Specific Dorena 1.005 (1.000-1.030) Urine Protein Negative (Negative) Urine Glucose (UA) Negative (Negative) Medications Administered Current Inpatient Medications Al Hydrox/Mg Hydrox/Simethicone (Aluminum/Magnesium Susp 30 Ml Udc) 15 ml PO Q4H PRN PRN Reason: Dyspepsia Stop: 10/04/21 21:48 Ascorbic Acid (Ascorbic Acid 500 Mg Tab) 500 mg PO QAM [facility] Stop: 10/05/21 08:59 Last Admin: 09/05/21 08:17 Dose: 500 mg Documented by: Ferrous Sulfate (Ferrous Sulfate 325 Mg Tab) 325 mg PO BIDM BRIAN Stop: 10/05/21 07:59 Last Admin: 09/05/21 08:18 Dose: 325 mg Documented by: Sodium Chloride (Nss) 250 mls @ 15 mls/hr IV .[id number] PRN PRN Reason: For Transfusion Stop: 09/05/21 14:34 Magnesium Hydroxide (Magnesium Hydroxide Susp 30 Ml Udc) 30 ml PO Q12H PRN PRN Reason: Constipation Stop: 10/04/21 21:48 Ondansetron HCl (Ondansetron Inj 2 Mg/Ml 2 Ml Vial) 4 mg IV Q6H PRN PRN Reason: Nausea Stop: 10/04/21 21:48 Polyethylene Glycol (Polyethylene (Miralax) 17 Gm Pack) 17 gm PO DAILY PRN PRN Reason: Constipation Stop: 10/04/21 21:48 (1) Chest pain Chest pain type: other chest pain Qualified Code(s): R07.89 - Other chest pain
--- NOTE | 2021-09-05 17:36 | Discharge Summary ---
Date of Service September 05, 2021 Admission HPI Per Admitting Provider This is a 26-year-old -[place] female who presents to ER with significant past medical history of iron deficiency anemia and asthma secondary to being referred by her manager it security due to low hemoglobin. Patient is from out of the area area, [facility]. She follows with [facility] hematology Dr. Carlton Arnold. Just recently established with him in May. She admits to history of iron deficiency anemia ever since she first developed her menses at 10 years old. Her first blood transfusion occurred at the age of 13. Her last transfusion was approximately 2 years ago. She states the highest her he moglobin maybe ever has been is 9. Over the last 2 to 3 months she has noticed increasing lightheadedness and dizziness upon standing, shortness of breath and chest pain with exertion and generally feeling unwell. She recently had a telemedicine visit with her manager it security and had lab work done. Her hemoglobin was in the fours and she was recommended to come to ED. She was initially called by her manager it security 3 days ago.In regards to her heavy menstrual cycle she states it typically last 5 to 7 days, she will go through at least 1 box of pads or tampons. She previously had a pelvic ultrasound but was within normal limits. She was also on control for approximately 10 years with no change in her heavy menses. Her mother also has issues with iron deficiency anemia in relation to heavy menstrual bleeding and fibroids. She states hers is much worse than her mother's. She denies any further work-up regarding iron deficiency anemia including EGD or colonoscopy. She denies any further family history of blood disorder. She denies any recent illness, fever, chills, sweats, syncope, URI symptoms, cough, hemoptysis, epistaxis, hematemesis, nausea, vomiting, abdominal pain, melena, hematochezia, hematuria, dysuria, increased urgency or frequency with urination. Her appetite is otherwise decreased and she does not feel that she gets adequate iron in her diet. She does not like red meat. She has a friend Max at bedside. She denies any tobacco or illicit drug use. She does occasionally drink wine. In ED patient made hemodynamically stable. Her hemoglobin was 4.9 and 18.2. She also had a relative pancytopenia. Her CMP was generally unremarkable. She did have elevated total bilirubin at 2.4. Her LFTs were otherwise normal. Her iron panel revealed a significant iron deficiency anemia with a ferritin level of 1.8, iron 19, transferrin 395. She was typed and crossed for 2 units in ED. Her urine test was negative, COVID test was negative and urine was negative. Admission Exam Per Admitting Provider Physical Exam: Constitutional: WD/WN, vitals as above, NAD, sitting up in bed, pleasant, conversing easily Head: Normocephalic, Atraumatic Eyes: PERRL, conjunctivae normal, anicteric sclerae ENMT: external ear and nose normal, oropharynx normal Neck: trachea midline, no thyromegaly normal visual inspection Respiratory: normal respiratory effort, lungs clear to auscultation, no wheeze, rales, rhonchi. Normal insp/exp effort, no accessory muscle use Cardiovascular: RRR, no murmur, no edema Vessels: no JVD or carotid bruit Chest: normal inspection of chest Abdomen: normal bowel sounds, soft, nontender, no hepatosplenomegaly Musculoskeletal: no cyanosis or clubbing, extremities motor strength 5/5 Skin: no rashes, warm and dry normal turgor Neurologic: PERRL, EOMI, accommodation nl, no face palsy, no dysarthria CN's II-XI intact bilaterally and moves all extremities Psychiatric: A+Ox3, euthymic affect Lymphatic: no cervical or axillary lymphadenopathy : deferred Principal Diagnosis Severe iron deficiency anemia status post 3 units of blood transfusion Discharge Exam Constitutional well developed, well nourished and + obese; not ill appearing Eyes PERRL, conjunctivae normal, anicteric sclerae ENMT external ear and nose normal, oropharynx normal Neck trachea midline, no thyromegaly Respiratory no respiratory distress Auscultation: lungs clear to auscultation bilaterally Cardiovascular Rate/Rhythm: regular rate and regular rhythm; not tachycardic Heart Sounds: normal S1 and normal S2; no murmur Extremities: no edema Gastrointestinal (Abdomen) Inspection/Auscultation: normal bowel sounds; abdomen not distended Percussion/Palpation: abdomen soft; abdomen nontender Psychiatric A+Ox3, euthymic affect Lymphatic no cervical or axillary lymphadenopathy Discharge Data Allergies Allergy/AdvReac Type Severity Reaction Status Date / Time acetaminophen Allergy Severe hallucinati Verified 09/04/21 17:49 ons Consultations 09/04/21 17:14 ED Decision to Admit Stat 09/04/21 19:04 Consult Health Information Management Routine Hospital Course (1) Symptomatic anemia: (2) Iron deficiency anemia: (3) Pancytopenia: (4) Chest pain: Symptomatic anemia Iron deficiency as result of chronic blood loss Pancytopenia 2 units of PRBC ordered, will give 20 mg IV Lasix in between Repeat hemoglobin after transfusion and assess need for further blood products Severe iron deficiency, ferritin level 1.8 Initiate IV Venofer 300 mg IV in a.m. place on oral iron +vit C bid Will recommend discharging on oral iron, patient noncompliant in the past Patient will need close follow-up with [facility] hematology Dr. 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 for completeness Doubt any ACS and remains asymptomatic Bilirubin is high Mostly indirect Likely secondary to mild hemolysis LFTs are normal DVT ppx: none given age and anemia FULL CODE PCP: None, from [facility] - recommend establishing with PCP Dispo: tele for transfusion Should be discharged home this afternoon Total Time Total Time Spent Total Time Spent (In Minutes): 35 minutes Discharge Plan Discharge Items Patient Disposition: Home - Self-Care Reason For Visit: IRON DEFICIENCY ANEMIA Discharge Diagnosis: Severe iron deficiency anemia status post 3 units of blood transfusion Condition on Discharge: Good Activity: Resume your previous activity Non-emergency contact: Primary Care Provider Call non-emergency contact if: you have any medication questions and your symptoms worsen Follow-up/Referrals: PCP,NO [Primary Care Provider] - (Please make an appointment with your manager it security and [facility] as soon as possible) Diet: Regular Addtl Attending Provider Instructions: Please take precautions to avoid fall Try to take iron pills as advised Stand-Alone Forms: [facility], Smoking Cessation Medications and DC Order Prescriptions: New ascorbic acid (vitamin C) [Vitamin C] 500 mg Tablet 500 mg PO QAM 3 Days Qty: 3 RF: 0 ferrous sulfate 325 mg (65 mg iron) Tablet,Delayed Release (Dr/Ec) 325 mg PO BIDM 30 Days Qty: 60 RF: 0 Discharge Orders: Discharge Order (Routine); Ordered 09/05/21 Ordered By: Janki Smith/Other Patient Handouts: Iron Supplements, ED Anemia, Iron-Deficiency (Adult) Admission Data Admit Date/Time: 09/04/21 17:29 Attending Provider: Janki Mercado Admit Provider: Garry Hatch Primary Care Provider: PCP,NO Other Providers: Garry Hatch Other Interventions: Discharge Summary Assessment (RN) Last Done: 09/05/21 13:59
--- NOTE | 2021-09-06 17:52 | Electrocardiogram Report ---
Test Reason : Blood Pressure : / mmHG Vent. Rate : 072 BPM Atrial Rate : 072 BPM P-R Int : 168 ms QRS Dur : 076 ms QT Int : 394 ms P-R-T Axes : 061 071 031 degrees QTc Int : 431 ms Poor data quality, interpretation may be adversely affected Normal sinus rhythm Normal ECG No previous ECGs available Confirmed by Segundo Olsen ([id number]) on 09/06/2021 5:51:32 PM Referred By: REFERRED SELF Confirmed By:Segundo Olsen
--- NOTE | 2021-09-06 19:24 | Electrocardiogram Report ---
Test Reason : Blood Pressure : / mmHG Vent. Rate : 063 BPM Atrial Rate : 063 BPM P-R Int : 188 ms QRS Dur : 084 ms QT Int : 422 ms P-R-T Axes : 043 059 020 degrees QTc Int : 431 ms Normal sinus rhythm Normal ECG When compared with ECG of 04-SEP-2021 15:52, (unconfirmed) No significant change was found Confirmed by Segundo Olsen ([id number]) on 09/06/2021 7:23:48 PM Referred By: REFERRED SELF Confirmed By:Segundo Olsen
== END 2021-09-05 14:26 | disposition home or self-care (01) ==
LOC: ED 14:50 → 2N 17:29 → INTOOBSV 17:29 → SUATTDRO 17:29 → 2N 21:25